=== PATIENT | female | born 1975 | race Caucasian/White ===

== ENCOUNTER 2021-12-01 14:08 | Outpatient (CLI) | payer OTHER, SELFPAY ==
[2021-12-01 17:25] LABS: Cholesterol* 229 mg/dL (90-199)
[2021-12-01 17:26] LABS: Glucose* 96 mg/dL (60-115); HDL Cholesterol* 33 mg/dL (>=50); LDL Cholesterol Calculated 140 mg/dL (<100); Triglycerides* 282 mg/dL (40-149)
== END 2021-12-01 14:09 | disposition home or self-care (01) ==
PROVIDERS: Visit Provider Physician Assistant
DX: Z01.419 Encounter for gynecological examination (general) (routine) without abnormal findings (principal); Z13.6 Encounter for screening for cardiovascular disorders; Z13.1 Encounter for screening for diabetes mellitus
CPT/HCPCS: 80061; 82947

== ENCOUNTER 2022-01-07 15:45 | Emergency (ER) | payer OTHER, SELFPAY ==
[2022-01-07] VITALS (26 sets, daily range): BP systolic 119–142; BP diastolic 83–104; PULSE 57–81; RESP 18; TEMP 36.2; O2SAT 96–100; BMI 32.1
--- NOTE | 2022-01-07 16:32 | CRLHL7_ITS ---
For Patients: As a result of the Cures Act, medical imaging exams and procedure reports are released immediately into your electronic medical record. You may view this report before your referring provider. If you have questions, please contact your health care provider. INDICATION: Shortness of breath. TECHNIQUE: Chest 2 views. COMPARISON: None. FINDINGS: Cardiovascular and mediastinum: Heart size and vasculature are normal in caliber and appearance. Lungs and pleural spaces: Lungs are clear. No sign of infiltrate or mass. No sign of pleural effusion. No pneumothorax. Bones and soft tissues: No significant findings. IMPRESSION: No acute or significant findings. Dictated by Julio Vargas MD @ 01/07/2022 5:33:53 PM (Electronically Signed)
[2022-01-07 16:35] LABS: Appearance Urine Clear (Clear); Bilirubin Urine Negative (Negative); Blood Urine Negative (Negative); Color Urine Yellow (Yellow); Glucose Urine Negative (Negative); Ketones Urine Negative (Negative); Leukocyte Esterase Urine Trace (Negative); Nitrite Urine Negative (Negative); Protein Urine Negative (Negative); Specific Gravity Urine <= 1.005 (1.000-1.030); Urobilinogen Urine 0.2 (0.2-1.0)
[2022-01-07] MEDS: SUCRALFATE 1 GM TABLET PO (17:06)
[2022-01-07 17:15] LABS: Albumin* 4.8 g/dL (3.3-5.0)
[2022-01-07 17:18] LABS: Bilirubin Direct* 0.1 mg/dL (0.0-0.5)
[2022-01-07 17:19] LABS: Alanine Aminotransferase* 23 U/L (4-35); Alkaline Phosphatase* 70 U/L (40-150); Aspartate Amino Transferase* 30 U/L (12-35); Lipase* 106 U/L (23-300); Total Protein* 8.1 g/dL (6.0-8.3)
[2022-01-07 17:19] LABS: Bacteria Urine Moderate; Squamous Epithelial Cell Urine Moderate (None-Few)
[2022-01-07 17:20] LABS: D Dimer Quantitative* 1.89 ug/ml (0.00-0.50)
[2022-01-07 17:26] LABS: C Reactive Protein* < 0.5 mg/dL (0.5-1.0)
[2022-01-07 17:31] LABS: Troponin I* < 0.01 ng/mL (0.01-0.04)
--- NOTE | 2022-01-07 17:52 | CRLHL7_ITS ---
For Patients: As a result of the Cures Act, medical imaging exams and procedure reports are released immediately into your electronic medical record. You may view this report before your referring provider. If you have questions, please contact your health care provider. INDICATION: Shortness of breath, chest pain, elevated D-dimer CT CHEST WITH CONTRAST TECHNIQUE: Multidetector axial CT imaging was performed through the chest following intravenous contrast administration using 95mL Isovue 370. COMPARISON: None. FINDINGS: No filling defects are identified in the pulmonary arterial tree to suggest pulmonary emboli. The thoracic aorta shows no evidence of dissection. The lungs are clear. No pleural effusions. No mediastinal masses or abnormally enlarged lymph nodes. The heart appears within normal limits. Visualized bones show no significant findings. Included portions of the upper abdomen are unremarkable. IMPRESSION: No pulmonary emboli or other acute intrathoracic abnormalities identified. NATAN CRENSHAW MD [facility] Please note that all CT scans at this facility use dose modulation, iterative reconstruction, and/or weight-based dosing when appropriate to reduce radiation dose to as low as reasonably achievable. Dictated by: Michael Crenshaw MD @ 01/07/2022 18:34:15 (Electronically Signed)
--- NOTE | 2022-01-07 18:02 | ED.GENADULT ---
HPI - General Adult General Chief complaint: Abdominal Pain Stated complaint: Sharp pain on Left stomach Time Seen by Provider: 01/07/22 16:20 Source: patient Mode of arrival: ambulatory Limitations: no limitations History of Present Illness HPI narrative: 47-year-old female coming in today complaining of epigastric abdominal pain that is been going on for quite some time. It comes and goes. She tells me it has been several months at least. Today was the worst day so she came in for evaluation. Pain is located in the epigastric radiates round her flank to her mid back. It usually comes on right after she eats or drinks something. Today it came on after she had some Tea. Usually it comes on with minimal p.o. intake such as just drinking water. It lasts 1 or hour or so and then goes away. She denies any vomiting, weight loss or diarrhea. No dysuria increased urinary frequency or urgency. She denies any history of intra-abdominal surgery. No new medications. She states that when the pain comes on she does sometimes feel short of breath. She states that she could hardly walk from her car to her work today because she felt so short of breath. Related Data Home Medications Medication Instructions Recorded Confirmed levonorgestrel 20 mcg/24 hours (8 1 device intrauterine ONCE 12/01/21 01/07/22 yrs) 52 mg intrauterine device (Mirena) Previous Rx's Medication Instructions Recorded peg 3350-electrolytes 236 240 ml PO Q15M #4,000 mL 12/04/21 gram-22.74 gram-6.74 gram-5.86 gram solution (Golytely) sucralfate 1 gram tablet (Carafate) 1 g PO QID PRN #30 tabs 01/07/22 Allergies Allergy/AdvReac Type Severity Reaction Status Date / Time No Known Drug Allergies Allergy Verified 01/07/22 15:16 Review of Systems Status of ROS: Reports: 10 or more systems reviewed and unremarkable except as noted in History and below [facility] Medical History Anxiety Attention deficit disorder (05/05/12) Depression History of seizure (05/05/12) Surgical History History of (05/05/12) Family History Family/Other High blood pressure Mother High cholesterol Social History Narrative: . Works in a warehouse. Highest level of education: 12th grade. Nonsmoker. Alcohol use: 2x/week. Denies recreational drug use. No concerns with safety or abuse. Smoking Status: Never smoker Do you use any of these nicotine containing products: None Second hand tobacco smoke exposure: No How often do you have a drink containing alcohol: 2-3 times a week AUDIT-C Alcohol total score: 3 Non-prescribed substance use: denies use Little interest or pleasure in doing things: several days Feeling down, depressed, or hopeless: several days Exam Narrative: Exam Narrative: Well-nourished well-developed patient in no acute distress. Alert and oriented. Answers questions appropriately. Mood and affect are appropriate. Thoughts are goal oriented and rational. No tangential or magical thinking noted. Patient speaks in full sentences without needing to catch their breath. Speech is not slurred or pressure. HEENT: Normocephalic atraumatic. Pupils are equally round reactive to light. Extraocular muscles are intact. Conjunctivae are moist without any icterus noted. Moist mucous membranes. Posterior pharynx is normal. Neck is soft without any lymphadenopathy or thyromegaly. No masses are appreciated. Cardiovascular: Heart is regular rate and rhythm S1 and S2 are present without any murmurs. Lungs: Clear to auscultation bilaterally no wheezes rhonchi or rales are appreciated. Patient takes deep breaths without any discomfort. Abdomen: Soft and nontender nondistended with normal bowel sounds. No guarding or rebound. No masses or organomegaly appreciated. Negative Cope sign. Extremities: Bilateral lower extremities are without edema. Normal DP and PT pulses. Skin: Well perfused without any obvious rashes. Const: Vital Signs, click to edit/add: Vital Signs - 24 hr 01/07/22 16:16 01/07/22 17:12 01/07/22 17:19 Temperature 97.2 F L Pulse Rate 66 Pulse Rate [Right Pulse Oximeter] 81 66 Respiratory Rate 18 18 Blood Pressure Blood Pressure [Ri ght Upper Arm] 142/89 H 125/96 H Pulse Oximetry 99 100 97 Oxygen Delivery Me thod Room Air Room Air 11/23/22 17:30 01/07/22 17:32 01/07/22 17:45 Temperature Pulse Rate 68 66 79 Pulse Rate [Right Pulse Oximeter] Respiratory Rate Blood Pressure 123/93 H Blood Pressure [Ri ght Upper Arm] Pulse Oximetry 97 100 99 Oxygen Delivery Me thod 01/07/22 18:00 01/07/22 18:15 01/07/22 18:30 Temperature Pulse Rate 67 63 70 Pulse Rate [Right Pulse Oximeter] Respiratory Rate Blood Pressure Blood Pressure [Ri ght Upper Arm] Pulse Oximetry 98 97 100 Oxygen Delivery Me thod 01/07/22 18:32 01/07/22 18:33 01/07/22 18:45 Temperature Pulse Rate 68 66 72 Pulse Rate [Right Pulse Oximeter] Respiratory Rate Blood Pressure 126/87 Blood Pressure [Ri ght Upper Arm] Pulse Oximetry 97 100 100 Oxygen Delivery Me thod 01/07/22 19:00 01/07/22 19:02 01/07/22 19:15 Temperature Pulse Rate 62 60 62 Pulse Rate [Right Pulse Oximeter] Respiratory Rate Blood Pressure 132/99 H Blood Pressure [Ri ght Upper Arm] Pulse Oximetry 99 98 96 Oxygen Delivery Me thod 01/07/22 19:30 01/07/22 19:32 01/07/22 19:45 Temperature Pulse Rate 67 68 78 Pulse Rate [Right Pulse Oximeter] Respiratory Rate Blood Pressure 123/92 H Blood Pressure [Ri ght Upper Arm] Pulse Oximetry 98 97 98 Oxygen Delivery Me thod 01/07/22 20:00 01/07/22 20:02 01/07/22 20:15 Temperature Pulse Rate 69 57 L 64 Pulse Rate [Right Pulse Oximeter] Respiratory Rate Blood Pressure 124/104 H Blood Pressure [Ri ght Upper Arm] Pulse Oximetry 97 98 99 Oxygen Delivery Me thod Course Course Hospital Course: Patient received a dose of Carafate and stated that her pain resolved completely. She no longer even felt short of breath. Did proceed with lab work which did show an elevated D-dimer at 1.89 we proceeded with a chest CT which was normal. Given the location of her pain so high in the abdomen and her complaints of shortness of breath, we did also did an EKG which showed normal sinus rhythm. Labs were unremarkable, urinalysis was a poor specimen with moderate amount of squamous epithelial cells. Again, given the location of her pain and the fact that the wrapped around to her back we also did a right upper quadrant ultrasound. Final reading pending, but per agriculture technician no stones were visualized. Vital Signs Vital signs: Initial Vital Signs Temperature 97.2 F L 01/07/22 16:16 Temperature Source Temporal Artery Scan 01/07/22 16:16 Pulse Rate 81 01/07/22 16:16 Respiratory Rate 18 01/07/22 16:16 Blood Pressure 142/89 H 01/07/22 16:16 Blood Pressure Mean 106 01/07/22 16:16 Blood Pressure Position Sitting 01/07/22 16:16 Pulse Oximetry 99 01/07/22 16:16 Oxygen Delivery Method 01/07/22 16:16 Vital Signs Temperature 97.2 F L 01/07/22 16:16 Pulse Rate 81 01/07/22 16:16 Respiratory Rate 18 01/07/22 16:16 Blood Pressure 142/89 H 01/07/22 16:16 Pulse Oximetry 99 01/07/22 16:16 Oxygen Delivery Method 01/07/22 16:16 Temperature 97.2 F L 01/07/22 16:16 Pulse Rate 64 01/07/22 20:15 Respiratory Rate 18 01/07/22 17:12 Blood Pressure 124/104 H 01/07/22 20:02 Pulse Oximetry 99 01/07/22 20:15 Oxygen Delivery Method 01/07/22 17:12 Medical Decision Making MDM Narrative Medical decision making narrative: 47-year-old male with abdominal pain likely gastritis or peptic ulcer disease. At this time recommend daily omeprazole and Carafate as needed. Follow-up with primary care provider in a couple of weeks if not improving. Can consider an EGD at that time. Patient was agreeable with everything we discussed had no other questions. Lab Data Lab results reviewed: Yes I reviewed the patient's lab results Labs: Lab Results 01/07/22 01/07/22 01/07/22 Range/Units 16:10 16:40 16:40 WBC 9.13 (4.50-11.00) K/uL RBC 4.44 (4.00-5.20) m/uL Hgb 13.8 (12.0-16.0) gm/dL Hct 39.9 (33.0-51.0) % MCV 90 (80-100) fL MCH 31 (26-34) pg MCHC 35 (32-36) gm/dL RDW Coeff of Sada 12.3 (11.5-15.5) % Plt Count 310 (140-440) K/uL Neut % (Auto) 72.4 H (42.0-72.0) % Lymph % (Auto) 21.1 (20-44) % [place] % (Auto) 5.7 (0.0-11.0) % Eos % (Auto) 0.4 (0.0-7.0) % Baso % (Auto) 0.3 (0.0-3.0) % Neut # (Auto) 6.60 (1.7-7.0) K/uL Lymph # (Auto) 1.93 (0.90-2.90) K/uL [place] # (Auto) 0.50 (0.00-0.90) K/UL Eos # (Auto) 0.04 (0.00-0.50) K/uL Baso # (Auto) 0.03 (0.00-0.30) K/uL Abs Immat Gran (auto) 0.01 (0.00-0.30) K/uL Imm/Tot Granulo (auto) 0.1 % ESR (2-20) mm/hr D-Dimer Quant (PE/DVT) (0.00-0.50) ug/ml Sodium 141 (135-149) mmol/L Potassium 3.5 L (3.6-5.1) mmol/L Chloride 106 (96-114) mmol/L Carbon Dioxide 25 (20-32) mmol/L BUN 8 (5-24) mg/dL Creatinine 0.7 (0.5-1.5) mg/dL Estimated Creat Clear 83.95 Estimated GFR 106 ml/min Glucose 84 (60-115) mg/dL Lactate (0.5-1.9) mmol/L Calcium 9.2 (8.4-10.6) mg/dL Total Bilirubin (0.1-1.5) mg/dL Direct Bilirubin (0.0-0.5) mg/dL AST (12-35) U/L ALT (4-35) U/L Alkaline Phosphatase (40-150) U/L Troponin I (0.01-0.04) ng/mL C-Reactive Protein (0.5-1.0) mg/dL Total Protein (6.0-8.3) g/dL Albumin (3.3-5.0) g/dL Lipase (23-300) U/L Urine Color Yellow (Yellow) Urine Appearance Clear (Clear) Urine pH 6.0 (5.0-8.5) Ur Specific [place] <= 1.005 (1.000-1.030) Urine Protein Negative (Negative) Urine Glucose (UA) Negative (Negative) Urine Ketones Negative (Negative) Urine Blood Negative (Negative) Urine Nitrite Negative (Negative) Urine Bilirubin Negative (Negative) Urine Urobilinogen 0.2 (0.2-1.0) Ur Leukocyte Esterase Trace A (Negative) Urine RBC 5-10 A (0-2) Urine WBC 2-5 (0-5) Ur Squamous Epith Cells Moderate A (None-Few) Urine Bacteria Moderate A (None) 01/07/22 01/07/22 01/07/22 Range/Units 16:40 16:40 16:40 WBC (4.50-11.00) K/uL RBC (4.00-5.20) m/uL Hgb (12.0-16.0) gm/dL Hct (33.0-51.0) % MCV (80-100) fL MCH (26-34) pg MCHC (32-36) gm/dL RDW Coeff of Sada (11.5-15.5) % Plt Count (140-440) K/uL Neut % (Auto) (42.0-72.0) % Lymph % (Auto) (20-44) % [place] % (Auto) (0.0-11.0) % Eos % (Auto) (0.0-7.0) % Baso % (Auto) (0.0-3.0) % Neut # (Auto) (1.7-7.0) K/uL Lymph # (Auto) (0.90-2.90) K/uL [place] # (Auto) (0.00-0.90) K/UL Eos # (Auto) (0.00-0.50) K/uL Baso # (Auto) (0.00-0.30) K/uL Abs Immat Gran (auto) (0.00-0.30) K/uL Imm/Tot Granulo (auto) % ESR 16 (2-20) mm/hr D-Dimer Quant (PE/DVT) 1.89 H (0.00-0.50) ug/ml Sodium (135-149) mmol/L Potassium (3.6-5.1) mmol/L Chloride (96-114) mmol/L Carbon Dioxide (20-32) mmol/L BUN (5-24) mg/dL Creatinine (0.5-1.5) mg/dL Estimated Creat Clear Estimated GFR ml/min Glucose (60-115) mg/dL Lactate (0.5-1.9) mmol/L Calcium (8.4-10.6) mg/dL Total Bilirubin 1.0 (0.1-1.5) mg/dL Direct Bilirubin 0.1 (0.0-0.5) mg/dL AST 30 (12-35) U/L ALT 23 (4-35) U/L Alkaline Phosphatase 70 (40-150) U/L Troponin I < 0.01 L (0.01-0.04) ng/mL C-Reactive Protein < 0.5 L (0.5-1.0) mg/dL Total Protein 8.1 (6.0-8.3) g/dL Albumin 4.8 (3.3-5.0) g/dL Lipase 106 (23-300) U/L Urine Color (Yellow) Urine Appearance (Clear) Urine pH (5.0-8.5) Ur Specific [place] (1.000-1.030) Urine Protein (Negative) Urine Glucose (UA) (Negative) Urine Ketones (Negative) Urine Blood (Negative) Urine Nitrite (Negative) Urine Bilirubin (Negative) Urine Urobilinogen (0.2-1.0) Ur Leukocyte Esterase (Negative) Urine RBC (0-2) Urine WBC (0-5) Ur Squamous Epith Cells (None-Few) Urine Bacteria (None) 01/07/22 Range/Units 16:40 WBC (4.50-11.00) K/uL RBC (4.00-5.20) m/uL Hgb (12.0-16.0) gm/dL Hct (33.0-51.0) % MCV (80-100) fL MCH (26-34) pg MCHC (32-36) gm/dL RDW Coeff of Sada (11.5-15.5) % Plt Count (140-440) K/uL Neut % (Auto) (42.0-72.0) % Lymph % (Auto) (20-44) % [place] % (Auto) (0.0-11.0) % Eos % (Auto) (0.0-7.0) % Baso % (Auto) (0.0-3.0) % Neut # (Auto) (1.7-7.0) K/uL Lymph # (Auto) (0.90-2.90) K/uL [place] # (Auto) (0.00-0.90) K/UL Eos # (Auto) (0.00-0.50) K/uL Baso # (Auto) (0.00-0.30) K/uL Abs Immat Gran (auto) (0.00-0.30) K/uL Imm/Tot Granulo (auto) % ESR (2-20) mm/hr D-Dimer Quant (PE/DVT) (0.00-0.50) ug/ml Sodium (135-149) mmol/L Potassium (3.6-5.1) mmol/L Chloride (96-114) mmol/L Carbon Dioxide (20-32) mmol/L BUN (5-24) mg/dL Creatinine (0.5-1.5) mg/dL Estimated Creat Clear Estimated GFR ml/min Glucose (60-115) mg/dL Lactate 1.0 (0.5-1.9) mmol/L Calcium (8.4-10.6) mg/dL Total Bilirubin (0.1-1.5) mg/dL Direct Bilirubin (0.0-0.5) mg/dL AST (12-35) U/L ALT (4-35) U/L Alkaline Phosphatase (40-150) U/L Troponin I (0.01-0.04) ng/mL C-Reactive Protein (0.5-1.0) mg/dL Total Protein (6.0-8.3) g/dL Albumin (3.3-5.0) g/dL Lipase (23-300) U/L Urine Color (Yellow) Urine Appearance (Clear) Urine pH (5.0-8.5) Ur Specific [place] (1.000-1.030) Urine Protein (Negative) Urine Glucose (UA) (Negative) Urine Ketones (Negative) Urine Blood (Negative) Urine Nitrite (Negative) Urine Bilirubin (Negative) Urine Urobilinogen (0.2-1.0) Ur Leukocyte Esterase (Negative) Urine RBC (0-2) Urine WBC (0-5) Ur Squamous Epith Cells (None-Few) Urine Bacteria (None) Imaging Data Chest x-ray: Attestation: I have reviewed the pertinent imaging results. Radiologist's impression: Chest 2 views. COMPARISON: None. FINDINGS: Cardiovascular and mediastinum:? Heart size and vasculature are normal in caliber and appearance.? Lungs and pleural spaces:? Lungs are clear.? No sign of infiltrate or mass. ?No sign of pleural effusion.? No pneumothorax.? Bones and soft tissues:? No significant findings. IMPRESSION: No acute or significant findings. CT scan - chest: Attestation: I have reviewed the pertinent imaging results. Radiologist's impression: CT CHEST WITH CONTRAST TECHNIQUE: Multidetector axial CT imaging was performed through the chest following intravenous contrast administration using 95mL Isovue 370. COMPARISON: None. FINDINGS: No filling defects are identified in the pulmonary arterial tree to suggest pulmonary emboli. The thoracic aorta shows no evidence of dissection. The lungs are clear. No pleural effusions. No mediastinal masses or abnormally enlarged lymph nodes. The heart appears within normal limits. Visualized bones show no significant findings. Included portions of the upper abdomen are unremarkable. IMPRESSION: No pulmonary emboli or other acute intrathoracic abnormalities identified. ECG Data Attestation: I personally reviewed and interpreted this ECG as follows: (Normal sinus rhythm, pulse 59) Discharge Plan Discharge Clinical Impression: Abdominal pain Patient Disposition: Home, Self-Care Condition: Stable Additional Instructions: You have an inflammation of the lining of the stomach and you could also potentially have a small ulcer in the lining of the stomach as well. You should start daily Prilosec (omeprazole) 20 mg daily and he should continue this for 6 weeks. You can also take sucralfate as needed for discomfort, this is the medication you had in the ER today. If you are not noticing a difference in the next 2 weeks, follow-up with your primary care provider. A small polyp was found inside the gallbladder. Recommend you follow up with primary care to discuss next steps if any are needed. Prescriptions: New sucralfate [Carafate] 1 gram tablet 1 g PO QID PRNQty: 30 0RF No Action Mirena 20 mcg/24 hours (8 yrs) 52 mg intrauterine device 1 device intrauterine ONCE Rx Instructions: as a single dose peg 3350-electrolytes [Golytely] 236-22.74-6.74 -5.86 gram recon soln 240 ml PO Q15M Qty: 4000 0RF Rx Instructions: Per endoscopy instructions. Follow Up/Referrals: Provider,Not a Local [Primary Care Provider] - Stand Alone Forms: MyHealth Info Instructions
[2022-01-07 18:20] LABS: Basophils Absolute Auto 0.03 K/uL (0.00-0.30); Basophils Percent Auto 0.3 % (0.0-3.0); Eosinophils Absolute Auto 0.04 K/uL (0.00-0.50); Eosinophils Percent Auto 0.4 % (0.0-7.0); Hematocrit 39.9 % (33.0-51.0); Hemoglobin* 13.8 gm/dL (12.0-16.0); Immature Granulocytes Abs Auto 0.01 K/uL (0.00-0.30); Immature Granulocytes Pct Auto 0.1 %; Lymphocytes Absolute Auto 1.93 K/uL (0.90-2.90); Lymphocytes Percent Auto 21.1 % (20-44); Mean Corpuscular HGB Conc 35 gm/dL (32-36); Mean Corpuscular Hemoglobin 31 pg (26-34); Mean Corpuscular Volume 90 fL (80-100); Monocytes Percent Auto 5.7 % (0.0-11.0); Neutrophils Percent Auto 72.4 % (42.0-72.0); Platelet Count* 310 K/uL (140-440); RDW Coefficient of Variation % 12.3 % (11.5-15.5); Red Blood Count 4.44 m/uL (4.00-5.20); White Blood Count* 9.13 K/uL (4.50-11.00)
[2022-01-07 18:21] LABS: Chloride* 106 mmol/L (96-114); Potassium* 3.5 mmol/L (3.6-5.1); Sodium* 141 mmol/L (135-149)
[2022-01-07 18:22] LABS: Slide Review Reflex No
[2022-01-07 18:24] LABS: Blood Urea Nitrogen* 8 mg/dL (5-24); Calcium* 9.2 mg/dL (8.4-10.6); Carbon Dioxide* 25 mmol/L (20-32); Creatinine* 0.7 mg/dL (0.5-1.5); Est. Creatinine Clearance* 83.95; Estimated Glomerular Filt Rate 106 ml/min; Glucose* 84 mg/dL (60-115)
[2022-01-07 18:57] LABS: Erythrocyte SedimentationRate* 16 mm/hr (2-20)
--- NOTE | 2022-01-07 18:58 | CRLHL7_ITS ---
For Patients: As a result of the Century Cures Act, medical imaging exams and procedure reports are released immediately into your electronic medical record. You may view this report before your referring provider. If you have questions, please contact your health care provider. INDICATION: Epigastric pain. TECHNIQUE: Ultrasound abdomen limited. Sonographic images of the right upper quadrant were obtained using nuñez-scale and color Doppler images. COMPARISON: None. FINDINGS: Liver: Normal in size and echotexture. No suspicious masses. No intrahepatic biliary dilatation. Gallbladder: 5 millimeter echogenic structure along the gallbladder wall without definite shadowing. Normal wall thickness. No pericholecystic fluid. Common bile duct: 3 mm. Pancreas: Unremarkable. Right kidney: Normal in size. Normal echotexture and cortex. No suspicious masses, stones, or hydronephrosis. Vasculature: Proximal abdominal aorta and IVC are unremarkable. IMPRESSION: No cholecystitis or biliary obstruction. Incidental tiny 5 millimeter echogenic structure along the gallbladder wall without definite shadowing. Differential includes tiny stone or polyp. Dictated by Mannie Blount MD @ 01/07/2022 8:54:38 PM (Electronically Signed)
== END 2022-01-07 21:11 | disposition home or self-care (01) ==
PROVIDERS: Emergency Provider Family Medicine
DX: R10.13 Epigastric pain (principal)
CPT/HCPCS: 36415; 71046; 71260; 76705; 80048; 80076; 81001; 83605; 83690; 84484; 85025; 85379; 85651; 86140; 87086; 93005; 99284; 99285; A9270; Q9967

== ENCOUNTER 2022-02-17 15:26 | Outpatient (CLI) | payer OTHER, SELFPAY ==
--- NOTE | 2022-02-17 15:40 | CRLHL7_ITS ---
For Patients: As a result of the Century Cures Act, medical imaging exams and procedure reports are released immediately into your electronic medical record. You may view this report before your referring provider. If you have questions, please contact your health care provider. BILATERAL SCREENING MAMMOGRAM WITH COMPUTER-AIDED DETECTION TECHNIQUE: CC and MLO views were obtained. These mammographic images have been obtained using full-field digital technique. These mammographic images were interpreted with the benefit of computer-aided detection. COMPARISON FILM: 02/14/21, 01/17/20, 01/04/18. FINDINGS: The breasts are heterogeneously dense, which may obscure small masses IMPRESSION: There is no radiographic evidence for malignancy. ASSESSMENT: BI-RADS Category 1: Negative RECOMMENDATION: Routine screening mammogram in 1 year. A lay language report of this examination will be provided to the patient. Kane Greer M.D. Diagnostic Radiologist [email or web address]/[email or web address] by: Kane Greer MD @ 02/18/2022 11:26:00 AM (Electronically Signed)
== END 2022-02-17 15:27 | disposition home or self-care (01) ==
LOC: MAMMO 15:27
PROVIDERS: Visit Provider Physician Assistant
DX: Z12.31 Encounter for screening mammogram for malignant neoplasm of breast (principal); R92.2 Inconclusive mammogram
CPT/HCPCS: 77067

== ENCOUNTER 2022-06-03 09:38 | Emergency (ER) | payer OTHER, SELFPAY ==
[2022-06-03] VITALS (20 sets, daily range): BP systolic 120–143; BP diastolic 71–102; PULSE 61–79; RESP 16; TEMP 36.6; O2SAT 94–100; BMI 29.1
--- NOTE | 2022-06-03 10:19 | CRLHL7_ITS ---
For Patients: As a result of the Century Cures Act, medical imaging exams and procedure reports are released immediately into your electronic medical record. You may view this report before your referring provider. If you have questions, please contact your health care provider. INDICATION: Umbilical pain.. TECHNIQUE: CT abdomen and pelvis without contrast. COMPARISON: None. FINDINGS: Limited evaluation of the intra-abdominal solid organs without IV contrast. Lower chest: Unremarkable. Liver: Normal in size and attenuation. No suspicious masses. Gallbladder and bile ducts: No stones or inflammation. No biliary dilatation. Possible biliary stent is identified near the duodenum (), although appears to be outside of the common bile duct and us may be an intraluminal ingested body. Pancreas: Unremarkable. No mass or inflammation. Spleen: Normal in size. No masses. Adrenal glands: Normal in size. No nodules. Kidneys: Normal in size. No suspicious masses, stones, or hydronephrosis. GI tract: Unremarkable. Normal in caliber. No sign of mass or inflammation. Normal appendix. Vasculature: Abdominal aorta is normal in caliber. Lymph nodes: No lymphadenopathy. Peritoneum/Abdominal Wall: 2 periumbilical hernias are identified. Both contain fat (), the 1st neck measures approximately 1 centimeter in diameter and demonstrates small amount of fat within the herniated portion. No evidence of strangulation. The 2nd hernia is approximately 18 millimeters in diameter slightly to the left of midline (), with fat demonstrating slight stranding indicative of inflammation and concerning for strangulation. A tiny umbilical hernia is also noted (). Pelvis: IUD within the uterus. Bladder is decompressed. Bones: Unremarkable for age. IMPRESSION: Periumbilical hernias, one demonstrating fat stranding indicative of inflammation. This can be seen in setting of strangulation. Please note that all CT scans at this facility use dose modulation, iterative reconstruction, and/or weight-based dosing when appropriate to reduce radiation dose to as low as reasonably achievable. Dictated by Aki Rodas MD @ 06/03/2022 12:36:01 PM (Electronically Signed)
--- NOTE | 2022-06-03 10:22 | ED.GENADULT ---
HPI - General Adult General Chief complaint: Abdominal Pain Stated complaint: Abdominal pain Time Seen by Provider: 06/03/22 10:09 History of Present Illness HPI narrative: Patient is a 47-year-old white female with onset of abdominal pain over the last day worsening. In presents to the ED. The patient reports her pain is in the periumbilical area radiates lobe with left of her abdomen. She states she has had some pain that was present in December of last year, had a chest CT and chest x-ray no soft have acid peptic disease symptoms got better with Carafate. She now notices a lump just above her umbilicus. And it has been very painful in that area. She has had no fever chills no history of chest pain or breathing problem no history of GI colitis or Crohn's disease. Does have a history of ADD depression anxiety and hyperlipidemia. She is on no home medication Related Data Home Medications Medication Instructions Recorded Confirmed No Known Home Medications 06/03/22 06/03/22 Allergies Allergy/AdvReac Type Severity Reaction Status Date / Time No Known Drug Allergies Allergy Verified 06/03/22 09:52 Review of Systems Status of ROS: Reports: 6 or more systems reviewed and unremarkable except as noted in History and below PFSH PFS Medical History Anxiety ?F41.9 - Anxiety disorder, unspecified (ICD-10) Attention deficit disorder (05/05/12) ?F98.8 - Other specified behavioral and emotional disorders with onset usually occurring in childhood and adolescence (ICD-10) Depression ?F32.A - Depression, unspecified (ICD-10) History of seizure (05/05/12) ?Z87.898 - Personal history of other specified conditions (ICD-10) Surgical History History of (05/05/12) ?Z98.891 - History of uterine scar from previous surgery (ICD-10) Family History Family/Other High blood pressure Mother High cholesterol Social History Narrative: . Works in a [employer]. Highest level of education: 12th grade. Nonsmoker. Alcohol use: 2x/week. Denies recreational drug use. No concerns with safety or abuse. Smoking Status: Never smoker Do you use any of these nicotine containing products: None Second hand tobacco smoke exposure: No How often do you have a drink containing alcohol: 2-3 times a week How many standard drinks containing alcohol do you have on a typical day: 3 or 4 AUDIT-C Alcohol total score: 4 Non-prescribed substance use: denies use Little interest or pleasure in doing things: several days Feeling down, depressed, or hopeless: several days Exam Narrative: Exam Narrative: Objective: Vital signs show no marked abnormality Patient is in marked distress and discomfort moaning writhing HEENT is unremarkable no facial asymmetry neck is supple heart rhythm regular lungs sound clear abdomen benign soft with exception she gets a firm lump just abov her umbilicus it is extremely tender, she has no other peritoneal abdominal signs no palpable masses otherwise. Extremities are no edema neurologic nonfocal Const: Vital Signs, click to edit/add: Vital Signs - 24 hr 06/03/22 09:53 06/03/22 10:03 06/03/22 10:05 Temperature 97.8 F Pulse Rate 66 67 Pulse Rate [Pulse Oximeter] 70 Respiratory Rate 16 Blood Pressure 138/100 H Blood Pressure [Ri ght Upper Arm] 143/93 H Pulse Oximetry 97 97 97 Oxygen Delivery Me od Room Air 06/03/22 10:15 06/03/22 10:30 06/03/22 10:31 Temperature Pulse Rate 68 61 62 Pulse Rate [Pulse Oximeter] Respiratory Rate Blood Pressure 137/102 H Blood Pressure [Ri ght Upper Arm] Pulse Oximetry 99 97 97 Oxygen Delivery Me thod 06/03/22 10:45 06/03/22 11:00 06/03/22 11:02 Temperature Pulse Rate 69 69 72 Pulse Rate [Pulse Oximeter] Respiratory Rate Blood Pressure 132/81 Blood Pressure [Ri ght Upper Arm] Pulse Oximetry 99 96 97 Oxygen Delivery Me thod 06/03/22 11:18 06/03/22 11:37 06/03/22 11:45 Temperature Pulse Rate 69 75 71 Pulse Rate [Pulse Oximeter] Respiratory Rate Blood Pressure Blood Pressure [Ri ght Upper Arm] Pulse Oximetry 97 96 97 Oxygen Delivery Me thod 06/03/22 12:00 06/03/22 12:01 06/03/22 12:15 Temperature Pulse Rate 71 69 70 Pulse Rate [Pulse Oximeter] Respiratory Rate Blood Pressure 120/71 Blood Pressure [Ri ght Upper Arm] Pulse Oximetry 98 96 95 Oxygen Delivery Me thod 06/03/22 12:30 06/03/22 12:31 06/03/22 12:45 Temperature Pulse Rate 66 67 76 Pulse Rate [Pulse Oximeter] Respiratory Rate Blood Pressure 123/82 Blood Pressure [Ri ght Upper Arm] Pulse Oximetry 94 96 99 Oxygen Delivery Me thod 06/03/22 13:00 06/03/22 13:02 Temperature Pulse Rate 67 79 Pulse Rate [Pulse Oximeter] Respiratory Rate Blood Pressure 128/75 Blood Pressure [Ri ght Upper Arm] Pulse Oximetry 99 100 Oxygen Delivery Me thod Course Vital Signs Vital signs: Initial Vital Signs Temperature 97.8 F 06/03/22 09:53 Temperature Source Temporal Artery Scan 06/03/22 09:53 Pulse Rate 70 06/03/22 09:53 Pulse Rhythm Regular 06/03/22 09:53 Pulse Strength 3+ Normal 06/03/22 09:53 Respiratory Rate 16 06/03/22 09:53 Blood Pressure 143/93 H 06/03/22 09:53 Blood Pressure Mean 109 H 06/03/22 09:53 Blood Pressure Position Sitting 06/03/22 09:53 Pulse Oximetry 97 06/03/22 09:53 Oxygen Delivery Method Room Air 06/03/22 09:53 Vital Signs Temperature 97.8 F 06/03/22 09:53 Pulse Rate 70 06/03/22 09:53 Respiratory Rate 16 06/03/22 09:53 Blood Pressure 143/93 H 06/03/22 09:53 Pulse Oximetry 97 06/03/22 09:53 Oxygen Delivery Method Room Air 06/03/22 09:53 Temperature 97.8 F 06/03/22 09:53 Pulse Rate 79 06/03/22 13:02 Respiratory Rate 16 06/03/22 09:53 Blood Pressure 128/75 06/03/22 13:02 Pulse Oximetry 100 06/03/22 13:02 Oxygen Delivery Method Room Air 06/03/22 09:53 Medical Decision Making MDM Narrative Medical decision making narrative: The patient presents with recurrent abdominal discomfort periumbilical in nature, with a firm with feels like knuckle of fat or bowel above her umbilicus. I suspect she might have a incarcerated hernia causing her to level of discomfort. Certainly this could have gone got reduced in the past and then her pain resolved. Will check a CT of her abdomen, IV fluids, IV pain medication, surgical consult as needed, laboratory studies. Disposition pending findings above in consultation. Disposition pending CT results Addendum: : Evaluated the patient and CT finding. She has some fat containing periumbilical hernia. Certainly could be some inflammation there as well. Labs look reassuring. The patient's pain is completely gone. Will get a COVID test, and she will be set up for surgery tomorrow per Dr. Ambrosio. NPO after midnight recommended Lab Data Labs: Lab Results 06/03/22 06/03/22 06/03/22 Range/Units 10:00 11:10 12:56 WBC 7.47 (4.50-11.00) K/uL RBC 4.63 (4.00-5.20) m/uL Hgb 14.4 (12.0-16.0) gm/dL Hct 41.6 (33.0-51.0) % MCV 90 (80-100) fL MCH 31 (26-34) pg MCHC 35 (32-36) gm/dL RDW Coeff of Sada 12.4 (11.5-15.5) % Plt Count 319 (140-440) K/uL Neut % (Auto) 82.1 H (42.0-72.0) % Lymph % (Auto) 14.1 L (20-44) % [place] % (Auto) 2.9 (0.0-11.0) % Eos % (Auto) 0.4 (0.0-7.0) % Baso % (Auto) 0.4 (0.0-3.0) % Neut # (Auto) 6.10 (1.7-7.0) K/uL Lymph # (Auto) 1.10 (0.90-2.90) K/uL [place] # (Auto) 0.20 (0.00-0.90) K/UL Eos # (Auto) 0.03 (0.00-0.50) K/uL Baso # (Auto) 0.03 (0.00-0.30) K/uL Sodium 138 (135-149) mmol/L Potassium 4.3 (3.6-5.1) mmol/L Chloride 107 (96-114) mmol/L Carbon Dioxide 23 (20-32) mmol/L BUN 15 (5-24) mg/dL Creatinine 0.7 (0.5-1.5) mg/dL Estimated Creat Clear 87.48 Estimated GFR 106 ml/min Glucose 112 (60-115) mg/dL Calcium 8.9 (8.4-10.6) mg/dL Total Bilirubin 0.8 (0.1-1.5) mg/dL Direct Bilirubin 0.2 (0.0-0.5) mg/dL AST 28 (12-35) U/L ALT 24 (4-35) U/L Alkaline Phosphatase 80 (40-150) U/L C-Reactive Protein 0.6 (0.5-1.0) mg/dL Total Protein 8.5 H (6.0-8.3) g/dL Albumin 4.5 (3.3-5.0) g/dL Amylase 78 (18-89) U/L HCG, Qual Negative (Negative) Urine Color Yellow (Yellow) Urine Appearance Clear (Clear) Urine pH 6.0 (5.0-8.5) Ur Specific [place] 1.025 (1.000-1.030) Urine Protein 1+ A (Negative) Urine Glucose (UA) Negative (Negative) Urine Ketones Negative (Negative) Urine Blood Negative (Negative) Urine Nitrite Negative (Negative) Urine Bilirubin Negative (Negative) Urine Urobilinogen 0.2 (0.2-1.0) Ur Leukocyte Esterase Negative (Negative) Urine RBC 0-2 (0-2) Urine WBC 0-2 (0-5) Ur Squamous Epith Cells Moderate A (None-Few) Urine Bacteria Moderate A (None) SARS-CoV-2 (PCR) Negative SARS-CoV-2 (Negative) Discharge Plan Discharge Clinical Impression: Abdominal pain, Hernia, umbilical Patient Disposition: Home w/ Parent or Adult Condition: Improved Additional Instructions: Do not drink after midnight, will check a COVID test before you leave today. Tylenol Advil as needed today. Light activity, no bending or lifting. Follow-up with surgery as per Dr. Glaser's recommendation. For surgery on 06/04/2022, Epigastric Hernia Repair- Check in at Same Day Surgery desk at 8:30am tomorrow, 06/04/22. Nothing to eat or drink after midnight. May have up to two visitors with you in the same day surgery waiting room. Activity Level: Light activity Diet Detail: Light diet and NPO after midnight Prescriptions: No Action No Known Home Medications Follow Up/Referrals: Provider,Not a Local [Primary Care Provider] - Stand Alone Forms: Meograph Info Instructions
[2022-06-03 10:35] LABS: Basophils Absolute Auto 0.03 K/uL (0.00-0.30); Basophils Percent Auto 0.4 % (0.0-3.0); Eosinophils Absolute Auto 0.03 K/uL (0.00-0.50); Eosinophils Percent Auto 0.4 % (0.0-7.0); Hematocrit 41.6 % (33.0-51.0); Hemoglobin* 14.4 gm/dL (12.0-16.0); Immature Granulocytes Abs Auto 0.01 K/uL (0.00-0.30); Immature Granulocytes Pct Auto 0.1 %; Lymphocytes Percent Auto 14.1 % (20-44); Mean Corpuscular HGB Conc 35 gm/dL (32-36); Mean Corpuscular Hemoglobin 31 pg (26-34); Mean Corpuscular Volume 90 fL (80-100); Monocytes Percent Auto 2.9 % (0.0-11.0); Neutrophils Percent Auto 82.1 % (42.0-72.0); Platelet Count* 319 K/uL (140-440); RDW Coefficient of Variation % 12.4 % (11.5-15.5); Red Blood Count 4.63 m/uL (4.00-5.20); White Blood Count* 7.47 K/uL (4.50-11.00)
[2022-06-03] MEDS: 0.9 % SODIUM CHLORIDE 1000 ml 1,000 ML 6000 ML IV (10:41)
[2022-06-03] MEDS: LORazepam 2 MG/ML inj 0.5 MG IVP (10:42)
[2022-06-03 10:44] LABS: Slide Review Reflex No
[2022-06-03] MEDS: HYDROmorphone 0.5 mg/0.5 ml inj 1 MG IVP (10:45)
[2022-06-03] MEDS: PANTOPRAZOLE SODIUM 40 MG INJ IVP (10:48)
[2022-06-03 10:51] LABS: Albumin* 4.5 g/dL (3.3-5.0); Chloride* 107 mmol/L (96-114)
[2022-06-03 10:52] LABS: Potassium* 4.3 mmol/L (3.6-5.1); Sodium* 138 mmol/L (135-149)
[2022-06-03 10:54] LABS: Amylase* 78 U/L (18-89); Creatinine* 0.7 mg/dL (0.5-1.5); Est. Creatinine Clearance* 87.48; Estimated Glomerular Filt Rate 106 ml/min
[2022-06-03 10:55] LABS: Alanine Aminotransferase* 24 U/L (4-35); Alkaline Phosphatase* 80 U/L (40-150); Aspartate Amino Transferase* 28 U/L (12-35); Bilirubin Direct* 0.2 mg/dL (0.0-0.5); Bilirubin Total* 0.8 mg/dL (0.1-1.5); Blood Urea Nitrogen* 15 mg/dL (5-24); Calcium* 8.9 mg/dL (8.4-10.6); Carbon Dioxide* 23 mmol/L (20-32); Glucose* 112 mg/dL (60-115); Total Protein* 8.5 g/dL (6.0-8.3)
[2022-06-03 10:58] LABS: C Reactive Protein* 0.6 mg/dL (0.5-1.0)
[2022-06-03 11:02] LABS: HCG Qualitative Serum* Negative (Negative)
[2022-06-03 11:33] LABS: Appearance Urine Clear (Clear); Bilirubin Urine Negative (Negative); Blood Urine Negative (Negative); Color Urine Yellow (Yellow); Glucose Urine Negative (Negative); Ketones Urine Negative (Negative); Specific Gravity Urine 1.025 (1.000-1.030)
[2022-06-03 11:34] LABS: Bacteria Urine Moderate; Leukocyte Esterase Urine Negative (Negative); Nitrite Urine Negative (Negative); Protein Urine 1+ (Negative); RBC Urine 0-2 (0-2); Squamous Epithelial Cell Urine Moderate (None-Few); Urobilinogen Urine 0.2 (0.2-1.0); WBC Urine 0-2 (0-5)
--- NOTE | 2022-06-03 14:13 | P.GSHP_ITS ---
History of Present Illness History of Present Illness Date Seen: 06/03/22 Chief complaint: Abdominal pain Narrative: Liz Ackerman is a 47 year old female who presented to the emergency department with a one-day history of severe upper abdominal pain. This morning she felt pain and a bulge just above her belly button, that was very tense. She was unable to push away the bulge, which prompted her to come to the emergency department. This has improved and now resolved with pain medication. She is currently feeling hungry. Before this episode she was tolerating a regular diet and having regular bowel movements. She has had pain similar to this on and off for the last several months. Most recently she has also noticed a bulge in the area which seems to come and go. Her abdominal surgical history is positive for 2 C sections. She is a nonsmoker, no personal history of diabetes. Review of Systems Status of ROS: Reports: 6 or more systems reviewed and unremarkable except as noted in History and below [facility] Medical History Anxiety ?F41.9 - Anxiety disorder, unspecified (ICD-10) Attention deficit disorder (05/05/12) ?F98.8 - Other specified behavioral and emotional disorders with onset usually occurring in childhood and adolescence (ICD-10) Depression ?F32.A - Depression, unspecified (ICD-10) History of seizure (05/05/12) ?Z87.898 - Personal history of other specified conditions (ICD-10) Surgical History History of (05/05/12) ?Z98.891 - History of uterine scar from previous surgery (ICD-10) Family History Family/Other High blood pressure Mother High cholesterol Social History Narrative: . Works in a warehouse. Highest level of education: 12th grade. Nonsmoker. Alcohol use: 2x/week. Denies recreational drug use. No concerns with safety or abuse. Smoking Status: Never smoker Do you use any of these nicotine containing products: None Second hand tobacco smoke exposure: No How often do you have a drink containing alcohol: 2-3 times a week How many standard drinks containing alcohol do you have on a typical day: 3 or 4 AUDIT-C Alcohol total score: 4 Non-prescribed substance use: denies use Little interest or pleasure in doing things: several days Feeling down, depressed, or hopeless: several days Meds Home Medications and Allergies Home Medications Medication Instructions Recorded Confirmed Type No Known Home Medications 06/03/22 06/03/22 History Allergies Allergy/AdvReac Type Severity Reaction Status Date / Time No Known Drug Allergies Allergy Verified 06/03/22 09:52 Exam Narrative: Exam Narrative: General: Alert and oriented, no acute distress Respiratory: Equal breath rise bilaterally, maintained on room air CV: Regular rhythm rate, well perfused Abdomen: Soft, nontender nondistended. Patient was examined lying flat and during Valsalva. Just above the umbilicus is an approximately 2 cm fascial defect palpated, this is currently nontender and completely reduced with no incarcerated fat. Const: Vital Signs, click to edit/add: Vital Signs - 24 hr 06/03/22 09:53 06/03/22 10:03 06/03/22 10:05 Temperature 97.8 F Pulse Rate 66 67 Pulse Rate [Pulse Oximeter] 70 Respiratory Rate 16 Blood Pressure 138/100 H Blood Pressure [Ri ght Upper Arm] 143/93 H Pulse Oximetry 97 97 97 Oxygen Delivery Me od Room Air 06/03/22 10:15 06/03/22 10:30 06/03/22 10:31 Temperature Pulse Rate 68 61 62 Pulse Rate [Pulse Oximeter] Respiratory Rate Blood Pressure 137/102 H Blood Pressure [Ri ght Upper Arm] Pulse Oximetry 99 97 [facility]22 10:45 06/03/22 11:00 06/03/22 11:02 Temperature Pulse Rate 69 69 72 Pulse Rate [Pulse Oximeter] Respiratory Rate Blood Pressure 132/81 Blood Pressure [Ri ght Upper Arm] Pulse Oximetry 99 96 97 Oxygen Delivery Id thod 06/03/22 11:18 06/03/22 11:37 06/03/22 11:45 Temperature Pulse Rate 69 75 71 Pulse Rate [Pulse Oximeter] Respiratory Rate Blood Pressure Blood Pressure [Ri ght Upper Arm] Pulse Oximetry 97 96 97 Oxygen Delivery Id thod 06/03/22 12:00 06/03/22 12:01 06/03/22 12:15 Temperature Pulse Rate 71 69 70 Pulse Rate [Pulse Oximeter] Respiratory Rate Blood Pressure 120/71 Blood Pressure [Ri ght Upper Arm] Pulse Oximetry 98 96 95 Oxygen Delivery Me thod 06/03/22 12:30 06/03/22 12:31 06/03/22 12:45 Temperature Pulse Rate 66 67 76 Pulse Rate [Pulse Oximeter] Respiratory Rate Blood Pressure 123/82 Blood Pressure [Ri ght Upper Arm] Pulse Oximetry 94 96 99 Oxygen Delivery Me thod 06/03/22 13:00 06/03/22 13:02 Temperature Pulse Rate 67 79 Pulse Rate [Pulse Oximeter] Respiratory Rate Blood Pressure 128/75 Blood Pressure [Ri ght Upper Arm] Pulse Oximetry 99 100 Oxygen Delivery Me thod Results Results Labs: Within normal limits Abdomen CT scan report/results: report reviewed and image reviewed Assessment and Plan Assessment and plan (1) Epigastric hernia: Status: Acute Plan Patient is a 47-year-old female with abdominal pain. On reviewing the patient's imaging and based on her history, it does appear that there was a piece of omentum incarcerated within an epigastric hernia. With pain medications and the patient relaxing this has spontaneously reduced. No concerns at this time for incarceration. We discussed the natural history of hernias, specifically that they do not get better on their own and can get worse over time. I additionally reviewed with her the anatomy of her hernia. Given the patient's symptoms different treatment options were discussed including observation versus surgical intervention. I would plan for an open approach with placement of mesh. Risks and benefits of the operation were discussed at length with the patient, including but not limited to: Bleeding, infection, risk of damage to surrounding structures, risk of recurrence and postop complication. We also reviewed the expected recovery, which includes no lifting greater than 20 lb for 6 weeks. After all questions and concerns were addressed the patient has decided to proceed with surgical intervention. Patient has been scheduled for surgery tomorrow. She will receive a COVID test here in the emergency department prior to discharge. Recommend no strenuous activity or heavy lifting while at home, nothing to eat or drink after midnight.
[2022-06-03 14:35] LABS: SARS PCR* Negative SARS-CoV-2 (Negative)
== END 2022-06-03 13:20 | disposition home or self-care (01) ==
PROVIDERS: Emergency Provider Family Medicine
DX: K42.9 Umbilical hernia without obstruction or gangrene (principal)
CPT/HCPCS: 36415; 74176; 80048; 80076; 81001; 82150; 84703; 85025; 86140; 87086; 87635; 96374; 96375; 99284; C9113; J1170; J2060; J7030

== ENCOUNTER 2022-06-04 08:19 | Day surgery (SDC) | payer OTHER, SELFPAY ==
[2022-06-04] VITALS (11 sets, daily range): BP systolic 107–128; BP diastolic 70–83; PULSE 58–83; RESP 14–16; TEMP 36.6–37.7; O2SAT 92–96; BMI 31.8
[2022-06-04] MEDS: LACTATED RINGERS 1000 ML 1,000 ML 100 ML IV ×2 (08:00→11:50)
--- NOTE | 2022-06-04 09:37 | W.ANESCHARGE ---
Anesthesia Charges Start Date/Time Anesthesia Start Date: 06/04/22 Anesthesia Start Time: 10:15 Stop Date/Time Anesthesia Stop Date: 06/04/22 Anesthesia Stop Time: 11:30
[2022-06-04] MEDS: CEFAZOLIN 2 GM INJ IVP (10:20)
[2022-06-04] MEDS: BUPIVACAINE 0.5% 30 ML INJECTION (11:20)
--- NOTE | 2022-06-04 11:22 | P.GSOP_ITS ---
Operative Note Date of procedure: 06/04/22 Pre-op diagnosis: Epigastric hernia, incarcerated with omentum Post-op diagnosis: Same Type of Procedure: Open epigastric hernia repair with placement of mesh Indications: Patient is a 47-year-old female who presented to the emergency department yesterday for severe abdominal pain. Workup was obtained with evidence of inc arcerated omentum within an epigastric hernia. Risks and benefits of operative intervention were discussed at length with the patient. Risks included but was not limited to: Bleeding, infection, risk of damage to surrounding structures, possible need for additional procedures, risk of recurrent and postoperative complications such as pneumonia, pulmonary emboli or CO. All questions and concerns were addressed with the patient agreeing to proceed. Procedure Description: After discussing the risks and benefits of the procedure, the patient signed informed consent.? The operative site was marked and the patient was brought to the operating room and placed on the operating table in supine position.? Care was taken to pad the patient's pressure points.?? The patient was then intubated by anesthesia.?? The operative site was then prepped and draped in the usual sterile fashion.? A time-out was then performed. A transverse incision was made above the umbilicus. Dissection was carried down into the subcutaneous tissue using cautery. The hernia sac was encountered and care was taken to not enter it. Dissection was taken down to the fascia, and the fascial edges were then cleared circumferentially. The hernia sac was able to be reduced after circumferential dissection was complete. The hernia was 4 cm in size and so the decision was made to use a piece of mesh. A preperitoneal pocket was created using a combination of blunt dissection and cautery. Hemostasis appeared adequate. Once the posterior fascia was clear, a piece of large Ventralex ST hernia mesh was placed in the preperitoneal space with care to ensure that it laid flat. This was secured into place using 2 0 PDS interrupted sutures. The tails were then trimmed and the fascial opening was closed with a running 0 Vicryl. Local anesthetic was injected into the fascia, skin and subcutaneous tissues. The skin was then closed with running absorbable suture. A sterile dressing was then applied. ? Findings: 4 cm epigastric hernia with incarcerated omentum, reduced and repaired with mesh. Anesthesia: GETA Surgeon: Valerie Glaser MD Estimated blood loss (mL): 5 Condition: stable Disposition: same day
--- NOTE | 2022-06-04 11:33 | W.ANESCHARGE ---
Anesthesia Charges Start Date/Time Anesthesia Start Date: 06/04/22 Anesthesia Start Time: 10:15 Stop Date/Time Anesthesia Stop Date: 06/04/22 Anesthesia Stop Time: 11:30
[2022-06-04] MEDS: OXYCODONE 5 MG TABLET PO (12:45)
== END 2022-06-04 13:44 | disposition home or self-care (01) ==
PROVIDERS: PCP Obstetrics & Gynecology; Visit Provider Surgery
PROC: (CPT 49594; principal; 2022-06-04 09:45)
DX: K43.6 Other and unspecified ventral hernia with obstruction, without gangrene (principal)
CPT/HCPCS: 49594; 00750; A4467; A9270; C1781; J0330; J0690; J2250; J2405; J2704; J2710; J3010; J3490; J7120

== ENCOUNTER 2023-01-21 13:28 | Outpatient (CLI) | payer OTHER, SELFPAY ==
--- OUTSIDE RECORDS SUMMARY | 2023-01-21 13:32 | XMS_ITS | Continuity of Care Document ---
Author Name Unknown Organization [facility] Address [address] [place] [address] Phone Care Team Providers Care Certified Physician'S Assistant Name Role Phone Caio BAEZ, Amimanuel Unavailable Unavailable Allergies, Adverse Reactions, Alerts Substance Reaction Status Criticality No Known Allergies Active No Inform ation Medications Medication Instructions Dosage Effective Dates (start - stop) Status Comments No Drug Therapy Prescribed Procedures Procedure Date Office/Outpatient [place] [facility] [place] Advance Directives Directive Yes / No Effective Date File Name No Information Encounters Encounter Description Practice Location Reason(s) For Visit Diagnoses Date Provider Providers Copied on Encounter [facility], [address], [place], [place], [id number], [place] tel:[phone] No Information [email or web address] Amir. [facility], [address] [place] [address] [address], [place], [place], [id number], [place]. tel:[phone] Office/Outpati ent Visit,[facility] [facility], [address], [place], [place], [id number], [place] tel:[phone] [facility] No Information [email or web address] Amimanuel. [facility], [address], [place], [place], [id number], [place]. tel:[phone] Referring Provider: Andry Melgar, [address] [place] [address], [id number]. tel:[phone] Family History Family Member Type Diagnosis Age At Onset No Information Payers Payer name Insurance type Covered democrat ID Authoriza tion(s) No Information Social History Type Description Quantity Date Captured Comments Sex Female Smoking Status No Information Chief Complaint And Reason For Visit No Information Reason For Referral Reason For Referral No Information History Of Present Illness Encounter Date Complaint History Of Prese nt Illness No Information Functional Status Date Functional Assessmen t No Information Medications Administered Medication Instructions Dosage Effective Dates (start - stop) Status Comments No Drug Therapy Prescribed Instructions Date Instruction Additional Infor mation No Information Assessments Type Assessment Date No Information Patient Care Teams Name Effective Dates (start - stop) Status Members No Information
== END 2023-01-21 13:29 | disposition home or self-care (01) ==
PROVIDERS: Visit Provider Nurse Practitioner Family
DX: E78.2 Mixed hyperlipidemia (principal); Z13.1 Encounter for screening for diabetes mellitus
CPT/HCPCS: 80061; 82947

== ENCOUNTER 2023-04-15 07:51 | Outpatient (CLI) | payer OTHER, SELFPAY ==
--- NOTE | 2023-04-15 09:48 | W.ANESCHARGE ---
Anesthesia Charges Start Date/Time Anesthesia Start Date: 04/15/23 Anesthesia Start Time: 08:55 Stop Date/Time Anesthesia Stop Date: 04/15/23 Anesthesia Stop Time: 09:45
--- NOTE | 2023-04-15 12:00 | W.ANESCHARGE ---
Anesthesia Charges Start Date/Time Anesthesia Start Date: 04/15/23 Anesthesia Start Time: 08:55 Stop Date/Time Anesthesia Stop Date: 04/15/23 Anesthesia Stop Time: 09:45
== END 2023-04-15 07:52 | disposition home or self-care (01) ==
LOC: OP CLINIC 07:53
PROVIDERS: Visit Provider Surgery
DX: Z12.11 Encounter for screening for malignant neoplasm of colon (principal); K63.5 Polyp of colon
CPT/HCPCS: 00811; 45381; 45385; 88305; J2704

== ENCOUNTER 2023-05-19 11:17 | Outpatient (CLI) | payer OTHER, SELFPAY ==
--- NOTE | 2023-05-19 11:30 | MM_ITS ---
Patient: DIANE CHRISTOPHER Facility:?[facility] Patient ID:?[id number] Site Patient ID:?[id number]. Site :?[id number] Study:?XRay-Breast Bilateral 3D W/CAD-05/19/2023 11:44:42 AM Ordering Physician:Silke Noble Final Report: BILATERAL SCREENING MAMMOGRAM WITH COMPUTER-AIDED DETECTION AND TOMOSYNTHESIS TECHNIQUE: CC and MLO views were obtained. These mammographic images have been obtained using full-field digital technique. These mammographic images were interpreted with the benefit of computer-aided detection. Breast Tomosynthesis was used in this interpretation. COMPARISON FILM: 02/17/22, 02/14/21, 01/17/20. FINDINGS: The breasts are heterogeneously dense, which may obscure small masses. IMPRESSION: There is no radiographic evidence for malignancy. ASSESSMENT: BI-RADS Category 1: Negative RECOMMENDATION: Routine screening mammogram in 1 year. A lay language report of this examination will be provided to the patient. Kane Greer M.D. Diagnostic Radiologist [email or web address] DSM/sp R& Transcribed: 4:31 p.m. SP/Dictated by: Kane Greer MD @ 05/21/2023 11:55:00 AM Signed by:?Kane Greer MD @05/21/2023 4:40:11 PM (Electronic Signature)
== END 2023-05-19 11:18 | disposition home or self-care (01) ==
LOC: MAMMO 11:18
PROVIDERS: Visit Provider Nurse Practitioner Family
DX: Z12.31 Encounter for screening mammogram for malignant neoplasm of breast (principal); R92.2 Inconclusive mammogram
CPT/HCPCS: 77063; 77067

== ENCOUNTER 2024-04-24 07:22 | Outpatient (CLI) | payer OTHER, SELFPAY ==
--- NOTE | 2024-04-24 08:11 | W.ANESCHARGE ---
Anesthesia Charges Start Date/Time Anesthesia Start Date: 04/24/24 Anesthesia Start Time: 08:11 Stop Date/Time Anesthesia Stop Date: 04/24/24 Anesthesia Stop Time: 08:42 Coding CPT Codes CPT Codes: ODIN MATHUR INTST NDSC NOS - 26312 ([id number]) P2 - PATIENT W/MILD SYST DISEASE, QX - SCREENPLAY WRITER SVC W/ MD MED DIRECTION, QK - MACHINE II TRIMMER 2-4 CNCRNT ODIN PROC
--- NOTE | 2024-04-24 08:44 | W.ANESCHARGE ---
Anesthesia Charges Start Date/Time Anesthesia Start Date: 04/24/24 Anesthesia Start Time: 08:11 Stop Date/Time Anesthesia Stop Date: 04/24/24 Anesthesia Stop Time: 08:42 Coding CPT Codes CPT Codes: ODIN LWR INTST NDSC NOS - 05201 ([id number]) P2 - PATIENT W/MILD SYST DISEASE, QK - GLASS LAMINATING OPERATOR 2-4 CNCRNT ANES PROC, QX - DIGITIZER OPERATOR SVC W/ MD MED DIRECTION
== END 2024-04-24 07:23 | disposition home or self-care (01) ==
LOC: OP CLINIC 07:23
PROVIDERS: Visit Provider Surgery
DX: Z12.11 Encounter for screening for malignant neoplasm of colon (principal); Z86.0101 Personal history of adenomatous and serrated colon polyps
CPT/HCPCS: 00811; 45378; 88305; J2704